=== PATIENT | male | born 1990 | race Caucasian/White ===

== ENCOUNTER 2018-06-09 15:04 | Emergency (ER) | payer MEDICAID ==
[~2018-06-09] VITALS: Ht 172.7 cm; Wt 104.5 kg
[2018-06-09 15:14] VITALS: Ht 172.7 cm; Wt 104.5 kg
[2018-06-09] MEDS ORDERED: BUPROPION XL300 MG PO (15:16)
[2018-06-09] MEDS ORDERED: ADDERALL 30 MG30 MG PO (15:16)
[2018-06-09] MEDS ORDERED: KLONOPIN1 MG PO (15:16)
[2018-06-09] MEDS ORDERED: CIPRO HC OTIC S10 ML EACH EAR (16:55)
[2018-06-09] MEDS ORDERED: ZPAK PO (16:55)
[2018-06-09 17:45] VITALS: BP 146/82
== END 2018-06-09 17:45 | disposition home or self-care (01) ==
LOC: D.ER 15:04
DX: H60.92 Unspecified otitis externa, left ear (principal); J01.90 Acute sinusitis, unspecified

== ENCOUNTER 2018-06-23 15:07 | Emergency (ER) | payer MEDICAID ==
[~2018-06-23] VITALS: Ht 172.7 cm; Wt 106.8 kg
[~2018-06-23 15:07] MED LIST: ADDERALL 30 MG30 MG PO; BUPROPION XL300 MG PO; CIPRO HC OTIC S10 ML EACH EAR; KLONOPIN1 MG PO; ZPAK PO
[2018-06-23 15:17] VITALS: Ht 172.7 cm; Wt 106.8 kg
[2018-06-23] MEDS ORDERED: NAPROSYN500 MG PO (15:47)
[2018-06-23] MEDS ORDERED: CLEOCIN HCL300 MG PO (15:47)
[2018-06-23 16:01] VITALS: BP 136/66
== END 2018-06-23 16:02 | disposition home or self-care (01) ==
LOC: D.ER 15:07
DX: K08.89 Other specified disorders of teeth and supporting structures (principal); H61.22 Impacted cerumen, left ear

== ENCOUNTER 2020-04-27 10:28 | Emergency (ER) | payer MEDICAID ==
[~2020-04-27] VITALS: Ht 172.7 cm; Wt 104.5 kg
[~2020-04-27 10:28] MED LIST changes: +CLEOCIN HCL300 MG PO; +NAPROSYN500 MG PO
[2020-04-27 10:36] VITALS: Ht 172.7 cm; Wt 104.5 kg
[2020-04-27 11:05] LABS: BASOPHILS 0.5 % (0-2); EOSINOPHILS 4.3 % (0-7); HEMATOCRIT 35.7 % (42.0-54.0); HEMOGLOBIN 12.2 g/dL (13.5-17.5); IMMATURE GRANULOCYTES 0.2 % (0-5); LYMPHOCYTE ABS# 2.08 10x3/uL (1.32-3.57); LYMPHOCYTES 31.6 % (15-50); MCHC 34.2 g/dL (31.0-37.0); MCV 90.6 fL (80.0-100.0); MEAN PLATELET VOLUME 9.4 fL (7.4-10.4); MONOCYTES 8.4 % (2-11); NEUTROPHIL ABS# 3.63 10x3/uL (1.78-5.38); PLATELET COUNT 243 10x3/uL (130-400); RBC 3.94 10x6/uL (4.20-6.10); RDW 12.8 % (11.5-14.5); WBC 6.6 10x3/uL (4.8-10.8)
[2020-04-27 11:13] LABS: CALC OSMOLALITY 280 mosm/kg (275-300); CALCIUM 8.8 mg/dL (8.5-10.1); CARBON DIOXIDE 30.4 mmol/L (21.0-32.0); CHLORIDE - SERUM 107 mmol/L (98-107); GLUCOSE 115 mg/dL (74-106); POTASSIUM - SERUM 4.1 mmol/L (3.5-5.1); SODIUM 140 mmol/L (136-145); UREA NITROGEN 14 mg/dL (7-18); eGFR NON AFRICAN AMERICAN > 90 mL/min (90-120)
[2020-04-27 11:16] LABS: APTT 36.2 SECONDS (22.8-39.4); INR 1.1 (0.85-1.17); PROTIME 13.1 SECONDS (11.6-15.0)
[2020-04-27 11:29] LABS: ALBUMIN 3.7 g/dL (3.4-5.0); ALKALINE PHOSPHATASE 81 U/L (30-120); ALT (SGPT) 54 U/L (10-68); BILIRUBIN - TOTAL 0.24 mg/dL (0.2-1.3); CKMB 5.2 U/L (0.0-3.6); CREATINE KINASE 413 UL (21-232); PROTEIN - SERUM 7.3 g/dL (6.4-8.2)
[2020-04-27 11:30] LABS: TROPONIN-I < 0.017 ng/mL (0.000-0.060)
[2020-04-27 12:13] VITALS: BP 122/70
== END 2020-04-27 12:14 | disposition left against medical advice (07) ==
LOC: D.ER 10:28
PROVIDERS: Family Medicine
DX: L02.415 Cutaneous abscess of right lower limb (principal); Z53.29 Procedure and treatment not carried out because of patient's decision for other reasons